=== PATIENT | male | born 1950 | race Caucasian/White ===

== ENCOUNTER 2020-01-01 10:21 | Emergency (ER) | payer OTHER ==
--- NOTE | 2020-01-01 11:09 | RAD REPORT ---
EXAM DESCRIPTION: RAD - Chest Single View - 01/01/2020 10:49 am CLINICAL HISTORY: COUGH Chest pain. COMPARISON: No comparisons FINDINGS: Portable technique limits examination quality. Calcified granuloma is present in the right lung. The lungs otherwise clear. The heart is normal in s ize. No displaced fractures. IMPRESSION: No acute intrathoracic process suspected.
[2020-01-01] MEDS ORDERED: ASPIRIN 81 MG CHEWABLE TABLET ONE (11:46)
[2020-01-01 12:00] LABS: Protime INR 0.97
[2020-01-01 12:01] LABS: Absolute Lymphocytes (CBC) 0.8 K/uL (0.7-4.9); Basophils % 0.1 % (0-1.3); Hematocrit 52.6 % (39.6-49.0); Lymphocytes % 7.4 % (15.3-44.8); MPV 8.3 fL (7.6-11.3); RBC Red Blood Cell Count 5.55 M/uL (4.33-5.43)
[2020-01-01 12:19] LABS: ALT/SGPT 22 U/L (12-78); AST/SGOT 16 U/L (15-37); Albumin 3.6 g/dL (3.4-5.0); Alkaline Phosphatase 85 U/L (45-117); BUN Blood Urea Nitrogen 19 mg/dL (7-18); Bicarbonate 24 mmol/L (21-32); Bilirubin Direct 0.2 mg/dL (0-0.2); Bilirubin Total 0.8 mg/dL (0.2-1.0); Glucose Level 84 mg/dL (74-106); Magnesium 2.3 mg/dL (1.8-2.4); NT PRO-BNP 13 pg/mL (<125); Potassium 4.1 mmol/L (3.5-5.1); Protein, Total 7.2 g/dL (6.4-8.2); Sodium Level 140 mmol/L (136-145); Troponin (Emerg Dept Use Only) < 0.02 ng/mL (0.0-0.045)
[2020-01-01 12:47] LABS: Blood Morphology Comment NOT SEEN (NOT SEEN); Platelet Estimate ADEQ; White Blood Cell Scan OK (OK)
--- NOTE | 2020-01-01 13:07 | EDPHYS ---
Physician Documentation [facility] Name: Suresh Coles Age: 69 yrs Sex: Male : 1950 Arrival Date: 01/01/2020 Time: 10:25 Bed 2 Private MD: ED Physician Roque Barnett HPI: 12/31 11:16 This 69 yrs old Male presents to ER via EMS with complaints of Near Syncope. amalia 11:16 The patient has experienced near-syncope, almost passed out. Onset: The amalia symptoms/episode began/occurred just prior to arrival. Duration: This was a single episode, that lasted 30 second(s). Context: the episode(s) was witnessed, having blood drawn at [facility], no pain. Associated injury: The patient did not suffer any apparent associated injury. Associated signs and symptoms: The patient has no apparent associated signs or symptoms. The patient has not experienced similar symptoms in the past. Historical: - Allergies: 10:25 No Known Allergies; aa5 - PMHx: 10:25 Hypertension; Hyperlipidemia; aa5 - Immunization history:: Adult Immunizations unknown. - Social history:: Smoking status: Patient denies any tobacco usage or history of. ROS: 11:21 Constitutional: Negative for fever, chills, and weight loss, Eyes: Negative for injury, amalia pain, redness, and discharge, ENT: Negative for injury, pain, and discharge, Neck: Negative for injury, pain, and swelling, Cardiovascular: Negative for chest pain, palpitations, and edema, Respiratory: Negative for shortness of breath, cough, wheezing, and pleuritic chest pain, Abdomen/GI: Negative for abdominal pain, nausea, vomiting, diarrhea, and constipation, Back: Negative for injury and pain, : Negative for injury, bleeding, discharge, and swelling, MS/Extremity: Negative for injury and deformity, Skin: Negative for injury, rash, and discoloration, Psych: Negative for depression, anxiety, suicide ideation, homicidal ideation, and hallucinations, Allergy/Immunology: Negative for hives, rash, and allergies, Endocrine: Negative for neck swelling, polydipsia, polyuria, polyphagia, and marked weight changes, Hematologic/Lymphatic: Negative for swollen nodes, abnormal bleeding, and unusual bruising. 11:21 Neuro: Positive for near syncope, weakness. Exam: 11:21 Constitutional: This is a well developed, well nourished patient who is awake, alert, amalia and in no acute distress. Head/Face: Normocephalic, atraumatic. Eyes: Pupils equal round and reactive to light, extra-ocular motions intact. Lids and lashes normal. Conjunctiva and sclera are non-icteric and not injected. Cornea within normal limits. Periorbital areas with no swelling, redness, or edema. ENT: Nares patent. No nasal discharge, no septal abnormalities noted. Tympanic membranes are normal and external auditory canals are clear. Oropharynx with no redness, swelling, or masses, exudates, or evidence of obstruction, uvula midline. Mucous membranes moist. Neck: Trachea midline, no thyromegaly or masses palpated, and no cervical lymphadenopathy. Supple, full range of motion without nuchal rigidity, or vertebral point tenderness. No Meningismus. Chest/axilla: Normal chest wall appearance and motion. Nontender with no deformity. No lesions are appreciated. Cardiovascular: Regular rate and rhythm with a normal S1 and S2. No gallops, murmurs, or rubs. Normal PMI, no JVD. No pulse deficits. Respiratory: Lungs have equal breath sounds bilaterally, clear to auscultation and percussion. No rales, rhonchi or wheezes noted. No increased work of breathing, no retractions or nasal flaring. Abdomen/GI: Soft, non-tender, with normal bowel sounds. No distension or tympany. No guarding or rebound. No evidence of tenderness throughout. Back: No spinal tenderness. No costovertebral tenderness. Full range of motion. Male : Normal genitalia with no discharge or lesions. Skin: Warm, dry with normal turgor. Normal color with no rashes, no lesions, and no evidence of cellulitis. MS/ Extremity: Pulses equal, no cyanosis. Neurovascular intact. Full, normal range of motion. Neuro: Awake and alert, GCS 15, oriented to person, place, time, and situation. Cranial nerves II-XII grossly intact. Motor strength 5/5 in all extremities. Sensory grossly intact. Cerebellar exam normal. Normal gait. Psych: Awake, alert, with orientation to person, place and time. Behavior, mood, and affect are within normal limits. 11:21 Musculoskeletal/extremity: DVT Exam: No signs of deep vein thrombosis. no pain, no swelling, no tenderness, negative Homans' sign noted on exam, no appreciated bluish discoloration, no erythema, no increased warmth. Vital Signs: 10:25 BP 125 / 51; Pulse 75; Resp 18 S; Temp 98.0(O); Pulse Ox 100% on R/A; Weight 80.74 kg aa5 (R); Height 5 ft. 5 in. (165.10 cm) (R); Pain 0/10; 11:35 BP 150 / 97; Pulse 80; Resp 18 S; Pulse Ox 100% on R/A; aa5 13:20 BP 141 / 96 Supine; Pulse 88; vg1 13:23 BP 160 / 99 Sitting; Pulse 87; vg1 13:26 BP 161 / 102 Standing; Pulse 83; vg1 10:25 Body Mass Index 29.62 (80.74 kg, 165.10 cm) aa5 MDM: 10:35 Patient medically screened. amalia 11:22 Differential Diagnosis: cardiac arrhythmia, GI bleed, idiopathic syncope, transient amalia ischemic attack, vasovagal episode. Data reviewed: vital signs, nurses notes, EMS record, lab test result(s), EKG, radiologic studies, plain films. Data interpreted: equipment services associate: rate is 75 beats/min, rhythm is regular, Pulse oximetry: on room air is 100 %. Test interpretation: by ED physician or midlevel provider: ECG, plain radiologic studies. Counseling: I had a detailed discussion with the patient and/or guardian regarding: the historical points, exam findings, and any diagnostic results supporting the discharge/admit diagnosis, lab results, radiology results, the need for outpatient follow up, for definitive care, a job coach/job developer. 11:33 Physician consultation: Wilfrido Rodriguez MD and will see patient in office, asa and follow amalia up. 12/31 10:37 Order name: Basic Metabolic Panel; Complete Time: 13: amalia 12/31 10:37 Order name: CBC with Diff; Complete Time: 13: amalia 12/31 10:37 Order name: LFT's; Complete Time: 13:12/31 10:37 Order name: Magnesium; Complete Time: 13:12/31 10:37 Order name: NT PRO-BNP; Complete Time: 13:12/31 10:37 Order name: PT-INR; Complete Time: 13: [facility] 12/31 10:37 Order name: Troponin (emerg Dept Use Only); Complete Time: 13:03 [facility] 12/31 10:37 Order name: XRAY Chest (1 view); Complete Time: 11:32 [facility] 12/31 10:37 Order name: EKG; Complete Time: 10:38 [facility] 12/31 10:37 Order name: Cardiac monitoring; Complete Time: 10:38 [facility] 12/31 11:48 Order name: Glucose, Ancillary Testing; Complete Time: 11:56 [facility] 12/31 12:06 Order name: CBC Smear Scan; Complete Time: 13:03 [facility] 12/31 10:37 Order name: EKG - Nurse/Tech; Complete Time: 10:39 [facility] 12/31 10:37 Order name: IV Saline Lock; Complete Time: 10:39 [facility] 12/31 10:37 Order name: Labs collected and sent; Complete Time: 11:20 [facility] 12/31 10:37 Order name: O2 Per Protocol; Complete Time: 10:39 [facility] 12/31 10:37 Order name: O2 Sat Monitoring; Complete Time: 10:39 [facility] 12/31 11:16 Order name: Labs collected and sent: recollect all labs; Complete Time: 11:47 12/31 13:05 Order name: Orthostatics; Complete Time: 13:32 [facility] Administered Medications: 10:55 Drug: NS 0.9% 500 ml Route: IV; Rate: bolus; Site: right wrist; aa5 11:40 Follow up: IV Status: Completed infusion; IV Intake: 500ml aa5 11:35 Drug: Aspirin 81 mg Route: PO; vg1 13:40 Follow up: Response: No adverse reaction aa5 Point of Care Testing: Blood Glucose: 10:29 Blood Glucose: 89 mg/dL; aa5 Ranges: Critical Glucose Levels:Adult <50 mg/dl or >400 mg/dl <40 mg/dl or >180 mg/dl Disposition: 01/01/20 13:06 Discharged to Home. Impression: Syncope and collapse - near/vasovagal. - Condition is Stable. - Discharge Instructions: Near-Syncope, Weakness, Near-Syncope, Zalm-od-Cnik, Weakness, Orti-av-Xhkk, Aspirin and Your Heart, Vasovagal Syncope, Adult. - Medication Reconciliation Form, Thank You Letter, Antibiotic Education, Prescription Opioid Use form. - Follow up: Private Physician; When: 2 - 3 days; Reason: Recheck today's complaints, Re-evaluation by your physician. Follow up: Wilfrido Rodriguez; When: 2 - 3 days; Reason: Recheck today's complaints, Continuance of care, Re-evaluation by your physician. - Problem is new. - Symptoms have improved. Signatures: Dispatcher [employer] EDMS Melodie Donato Corey, MD MD cha Williams, Irene, RN RN iw Yolanda Chun RN RN aa5 Kay Cramer, RN RN vg1 Corrections: (The following items were deleted from the chart) 13:49 13:06 01/01/2020 13:06 Discharged to Home. Impression: Syncope and collapse - iw near/vasovagal. Condition is Stable. Discharge Instructions: Near-Syncope, Weakness, Near-Syncope, Rdab-oy-Qayn, Weakness, Yrzh-kh-Wtlt, Aspirin and Your Heart, Vasovagal Syncope, Adult. Forms are Medication Reconciliation Form, Thank You Letter, Antibiotic Education, Prescription Opioid Use. Follow up: Private Physician; When: 2 - 3 days; Reason: Recheck today's complaints, Re-evaluation by your physician. Follow up: Wilfrido Rodriguez; When: 2 - 3 days; Reason: Recheck today's complaints, Continuance of care, Re-evaluation by your physician. Problem is new. Symptoms have improved. amalia
--- NOTE | 2020-01-01 13:07 | ER ---
Nurse's Notes [facility] Name: Suresh Coles Age: 69 yrs Sex: Male : 1950 Arrival Date: 01/01/2020 Time: 10:25 Bed 2 Private MD: Diagnosis: Syncope and collapse-near/vasovagal Presentation: 12/31 10:25 Chief complaint: EMS states: syncopal episode reported during blood draw at the [facility], witnessed by [facility] staff. EKG was then completed by [facility] staff and read as "acute STEMI". Pt states "I did not pass out, I just told her that I felt like I was going to pass out, but I remember everything". Pt states "my hemoglobin was high at 19 recently so the doctor wanted me to have more blood work today to check on it". Pt denies any complaints at this time. EMS reports systolic BP upon their arrival was 150 and pt was awake and alert. Pt has hx of syncope during blood draws. 10:25 Coronavirus screen: Client denies travel out of the [place] in the last 14 days. At this aa5 time, the client does not indicate any symptoms associated with coronavirus-19. Ebola Screen: Patient negative for fever greater than or equal to 101.5 degrees Fahrenheit, and additional compatible Ebola Virus Disease symptoms. Initial Sepsis Screen: Does the patient meet any 2 criteria? No. Patient's initial sepsis screen is negative. Does the patient have a suspected source of infection? No. Patient's initial sepsis screen is negative. Risk Assessment: Do you want to hurt yourself or someone else? Patient reports no desire to harm self or others. Onset of symptoms was January 01, 2020. 10:25 Acuity: PEPE 3 aa5 10:25 Method Of Arrival: EMS: [facility] aa5 10:25 Care prior to arrival: IV initiated. 20 GA, in the right hand. aa5 Historical: - Allergies: 10:25 No Known Allergies; aa5 - PMHx: 10:25 Hypertension; Hyperlipidemia; aa5 - Immunization history:: Adult Immunizations unknown. - Social history:: Smoking status: Patient denies any tobacco usage or history of. Screenin:30 Abuse screen: Denies threats or abuse. Nutritional screening: No deficits noted. aa5 Tuberculosis screening: No symptoms or risk factors identified. Fall Risk None identified. Assessment: 10:25 General: Appears comfortable, Behavior is calm, cooperative. Pain: Denies pain. Neuro: aa5 Level of Consciousness is awake, alert, obeys commands, Oriented to person, place, time, situation. Cardiovascular: Denies chest pain, Heart tones S1 S2 present Rhythm is regular. Respiratory: Airway is patent Respiratory effort is even, unlabored, Respiratory pattern is regular, symmetrical, Breath sounds are clear bilaterally. GI: Abdomen is round Patient currently denies nausea, vomiting. : No signs and/or symptoms were reported regarding the genitourinary system. EENT: No signs and/or symptoms were reported regarding the EENT system. Derm: Skin is pink, warm \\T\\ dry. Musculoskeletal: Range of motion: intact in all extremities. 11:42 Reassessment: Patient is alert, oriented x 3, equal unlabored respirations, skin aa5 warm/dry/pink. Pt denies any complaints. Pt notified of wait time for lab results. . 13:19 Reassessment: D/C pending due to new nursing orders. vg1 13:40 Reassessment: Patient is alert, oriented x 3, equal unlabored respirations, skin aa5 warm/dry/pink. Vital Signs: 10:25 BP 125 / 51; Pulse 75; Resp 18 S; Temp 98.0(O); Pulse Ox 100% on R/A; Weight 80.74 kg aa5 (R); Height 5 ft. 5 in. (165.10 cm) (R); Pain 0/10; 11:35 BP 150 / 97; Pulse 80; Resp 18 S; Pulse Ox 100% on R/A; aa5 13:20 BP 141 / 96 Supine; Pulse 88; vg1 13:23 BP 160 / 99 Sitting; Pulse 87; vg1 13:26 BP 161 / 102 Standing; Pulse 83; vg1 10:25 Body Mass Index 29.62 (80.74 kg, 165.10 cm) aa5 ED Course: 10:25 Patient arrived in ED. aa5 10:25 Arm band placed on Patient placed in an exam room, on a stretcher. aa5 10:25 Patient has correct armband on for positive identification. Bed in low position. Call aa5 light in reach. Side rails up X2. quality assurance monitor on. Pulse ox on. NIBP on. 10:33 EKG done, by ED staff, reviewed by Roque Barnett MD. nh 10:34 Triage completed. aa5 10:35 Roque Barnett MD is Attending Physician. the [facility] 10:35 Yolanda Chun, RN is Primary Nurse. aa5 10:47 XRAY Chest (1 view) In Process Unspecified. EDMS 10:55 Initial lab(s) drawn, by me, sent to lab. vg1 11:42 Lab(s) recollected, by me, sent to lab. aa5 13:06 Wilfrido Rodriguez MD is Referral Physician. [facility] 13:40 No provider procedures requiring assistance completed. IV discontinued, intact, aa5 bleeding controlled, No redness/swelling at site. Pressure dressing applied. Administered Medications: 10:55 Drug: NS 0.9% 500 ml Route: IV; Rate: bolus; Site: right wrist; aa5 11:40 Follow up: IV Status: Completed infusion; IV Intake: 500ml aa5 11:35 Drug: Aspirin 81 mg Route: PO; vg1 13:40 Follow up: Response: No adverse reaction aa5 Point of Care Testing: Blood Glucose: 10:29 Blood Glucose: 89 mg/dL; aa5 Ranges: Intake: 11:40 IV: 500ml; Total: 500ml. aa5 Outcome: 13:06 Discharge ordered by . [facility] 13:40 Discharged to home ambulatory. aa5 13:40 Condition: good 13:40 Discharge instructions given to patient, Instructed on discharge instructions, follow up and referral plans. Demonstrated understanding of instructions, follow-up care. 13:49 Patient left the ED. iw Signatures: Dispatcher [employer] EDNJ Roque Barnett MD MD cha Williams, Irene, RN RN Yolanda Chun, RN RN [facility] Natalee Carbajal mt, Victoria, RN RN vg1 Corrections: (The following items were deleted from the chart) 10:35 10:25 Chief complaint: EMS states: syncopal episode reported during blood draw at the [address], witnessed by [facility] staff. EKG was then completed by [facility] staff and read as "acute STEMI". Pt states "I did not pass out, I just told her that I felt like I was going to pass out, but I remember everything". Pt states "my hemoglobin was high at 19 recently so the doctor wanted me to have more blood work today to check on it". Pt denies any complaints at this time. EMS reports systolic BP upon their arrival was 150 and pt was awake and alert. aa5
[2020-01-01 16:19] VITALS: TEMP 98; O2SAT 100
[2020-01-01 16:25] VITALS: BP 161/102
--- NOTE | 2020-01-02 18:15 | EKG ---
Test Date: 2020-01-01 Test Time: 10:27:[address] Engineer: DIEGO MEASUREMENT RESULTS: Intervals: Rate: 72 UT: 168 QRSD: 120 QT: 410 QTc: 448 [place]: P: 61 UT: 168 QRS: 263 T: -20 INTERPRETIVE STATEMENTS: Normal sinus rhythm Right superior axis deviation Pulmonary disease pattern Nonspecific intraventricular conduction delay Abnormal QRS-T angle, consider primary T wave abnormality Abnormal ECG Compared to ECG 03/10/1995 20:57:00 Right superior axis now present Intraventricular conduction delay now present T-wave abnormality now present Left-axis deviation no longer present Electronically Signed On 01-02-20 18:11:42 ADVICE CLERK by Wilfrido Rodriguez
== END 2020-01-01 13:49 | disposition home or self-care (01) ==
LOC: ER 10:21
DX: R55 Syncope and collapse (principal); R53.1 Weakness; I10 Essential (primary) hypertension
CPT/HCPCS: 36415; 71045; 80048; 80076; 82947; 83735; 83880; 84484; 85025; 85610; 93005; 96360; 99285

== ENCOUNTER 2023-10-13 11:27 | Emergency (ER) | payer OTHER ==
--- NOTE | 2023-10-13 14:56 | EDPHYS ---
Physician Documentation [facility] Name: Suresh Coles Age: 73 yrs Sex: Male : 1950 Arrival Date: 10/13/2023 Time: 11:27 Bed 8 Private MD: ED Physician Christian Lebron HPI: 10/12 11:40 This 73 yrs old Male presents to ER via Wheelchair with complaints of Wasp Sting-4WKs, ms3 Arm Swelling. 11:40 73-year-old male with past medical history of hypertension and hyperlipidemia presents ms3 to the emergency department for right hand swelling that has been ongoing for 4 weeks. Patient states he was seen at the [facility] steroids, Valium, antihistamines without improvement of his symptoms. Patient denies pain. He denies any alleviating or inciting factors. Historical: - Allergies: 11:39 No Known Allergies; kc6 - Home Meds: 11:39 None [Active]; kc6 - PMHx: 11:39 Hyperlipidemia; Hypertension; kc6 - PSHx: 11:39 None; kc6 - Immunization history:: Adult Immunizations up to date. - Infectious Disease History:: Denies. - Social history:: Smoking status: Patient denies any tobacco usage or history of. ROS: 11:40 Constitutional: Negative for fever, and chills. Cardiovascular: Negative for chest ms3 pain, and palpitations. Respiratory: Negative for shortness of breath, cough, wheezing, and pleuritic chest pain, Abdomen/GI: Negative for abdominal pain, nausea, vomiting, diarrhea, and constipation, 11:40 MS/extremity: Positive for Right hand swelling, Exam: 11:40 Constitutional: This is a well developed, well nourished patient who is awake, alert, ms3 and in no acute distress. Head/Face: Normocephalic, atraumatic. Chest/axilla: Normal chest wall appearance and motion. Nontender with no deformity. Cardiovascular: Regular rate and rhythm with a normal S1 and S2. No gallops, murmurs, or rubs. Normal PMI, no JVD. No pulse deficits. Respiratory: Lungs have equal breath sounds bilaterally, clear to auscultation and percussion. No rales, rhonchi or wheezes noted. No increased work of breathing, no retractions or nasal flaring. Abdomen/GI: Soft, non-tender, with normal bowel sounds. No distension or tympany. No guarding or rebound. No evidence of tenderness throughout. Skin: Warm, dry with normal turgor. Normal color with no rashes, no lesions, and no evidence of cellulitis. 11:40 Musculoskeletal/extremity: Extremities: noted in the right hand: swelling, There is no evidence of pain, tenderness, Vital Signs: 11:35 BP 130 / 92; Pulse 89; Resp 17 S; Temp 97.8(O); Pulse Ox 99% on R/A; Weight 81.65 kg; kc6 Height 5 ft. 7 in. (R); 15:10 BP 124 / 87; Pulse 87; Resp 18; Temp 97.9; Pulse Ox 99% on R/A; ph 11:35 Body Mass Index 28.19 (81.65 kg, 170.18 cm) kc6 MDM: 11:39 Patient medically screened. ms3 11:40 Differential diagnosis: DVT vs Cellulitis vs Allergic rxn. ms3 19:06 Data reviewed: vital signs, nurses notes, radiologic studies, and as a result, I will ms3 discharge patient. I considered the following discharge prescriptions or medication management in the emergency department Medications were administered in the Emergency Department. See MAR. Counseling: I had a detailed discussion with the patient and/or guardian regarding the historical points, exam findings, and any diagnostic results supporting the discharge/admit diagnosis, radiology results, the need for outpatient follow up, to return to the emergency department if symptoms worsen or persist or if there are any questions or concerns that arise at home. Special discussion: I discussed with the patient/guardian in detail that at this point there is no indication for admission to the hospital. It is understood, however, that if the symptoms persist or worsen the patient needs to return immediately for re-evaluation. ED course: Discussed negative venous Doppler of right upper extremity with patient and his . [facility]. Patient given prescription for doxycycline 100 mg twice daily. All questions were answered. Return precautions discussed include worsening symptoms, or any other concerns. 10/12 11:47 Order name: UPPER EXTREMITY VENOUS UNILATE EDMS Administered Medications: 15:08 Drug: Dexamethasone IM 10 mg IM once Route: IM; Site: right gluteus; ph 15:10 Follow up: Response: No adverse reaction; Medication administered at discharge. ph Disposition Summary: 10/13/23 14:55 Discharge Ordered Notes: Location: Home ms3 Condition: Stable ms3 Diagnosis - Right hand swelling ms3 Followup: ms3 - With: Private Physician - When: 2 - 3 days - Reason: Recheck today's complaints Discharge Instructions: - Discharge Summary Sheet ms3 - Edema, [id number] ms3 Forms: - Medication Reconciliation Form ms3 - Antibiotic Education ms3 - Prescription Opioid Use ms3 - Patient Portal Instructions ms3 - Leadership Thank You Letter ms3 Prescriptions: - Doxycycline Hyclate 100 mg Oral Tablet - take 1 tablet ORAL route every 12 hours; 20 tablet; Refills: 0, Product ms3 Selection Permitted Signatures: Dispatcher [employer] EDChristiana Olvera, RN RN Christian Lebron DO DO ms3 Dariana Ryder RN RN kc6 Corrections: (The following items were deleted from the chart) 11:47 11:40 Extremity Venous [email or web address] ordered. EDMS EDMS
--- NOTE | 2023-10-13 14:56 | ER ---
Nurse's Notes [facility] Name: Suresh Coles Age: 73 yrs Sex: Male : 1950 Arrival Date: 10/13/2023 Time: 11:27 Bed 8 Private MD: Diagnosis: Right hand swelling Presentation: 10/12 11:35 Chief complaint: Patient states: he was stung by a wasp about 4 weeks ago and noticed kc6 swelling a couple days later. [facility] , antihistamines, and steroids. pt also reports difficult walking x 3 weeks. Coronavirus screen: At this time, the client does not indicate any symptoms associated with coronavirus-19. Ebola Screen: No symptoms or risks identified at this time. Initial Sepsis Screen: Does the patient meet any 2 criteria? No. Patient's initial sepsis screen is negative. Does the patient have a suspected source of infection? No. Patient's initial sepsis screen is negative. Risk Assessment: Do you want to hurt yourself or someone else? Patient reports no desire to harm self or others. Onset of symptoms was October 13, 2023. 11:35 Method Of Arrival: Wheelchair kc6 11:35 Acuity: PEPE 3 kc6 Historical: - Allergies: 11:39 No Known Allergies; kc6 - Home Meds: 11:39 None [Active]; kc6 - PMHx: 11:39 Hyperlipidemia; Hypertension; kc6 - PSHx: 11:39 None; kc6 - Immunization history:: Adult Immunizations up to date. - Infectious Disease History:: Denies. - Social history:: Smoking status: Patient denies any tobacco usage or history of. Screenin:22 [facility] ED Fall Risk Assessment (Adult) History of falling in the last 3 months, ph including since admission No falls in past 3 months (0 pts) Confusion or Disorientation No (0 pts) Intoxicated or Sedated No (0 pts) Impaired Gait No (0 pts) Mobility Assist Device Used Yes (1 pt) Altered Elimination No (0 pt) Score/Fall Risk Level 0 - 2 = Low Risk Oriented to surroundings, Maintained a safe environment, Hourly rounding (assess needs \\T\\ fall precautionary measures) done. Abuse screen: Denies threats or abuse. Denies injuries from another. Nutritional screening: No deficits noted. Tuberculosis screening: No symptoms or risk factors identified. Assessment: 12:23 General: Appears in no apparent distress. Behavior is calm, cooperative. Pain: ph Complains of pain in right hand. Neuro: Level of Consciousness is awake, alert, obeys commands, Oriented to person, place, time, situation. Cardiovascular: Capillary refill < 3 seconds in bilateral fingers Patient's skin is warm and dry. Derm: Skin is pink, warm \\T\\ dry. Musculoskeletal: Swelling present in right hand. 15:08 Reassessment: Patient appears in no apparent distress at this time. Patient and/or ph family updated on plan of care and expected duration. Pain level reassessed. Patient is alert, oriented x 3, equal unlabored respirations, skin warm/dry/pink. Pt requesting steroid shot to help w/ swelling, states, " [facility] Dr Lebron notified, verbal order received for 10 mg Decadron IM, see APR. Vital Signs: 11:35 BP 130 / 92; Pulse 89; Resp 17 S; Temp 97.8(O); Pulse Ox 99% on R/A; Weight 81.65 kg; kc6 Height 5 ft. 7 in. (R); 15:10 BP 124 / 87; Pulse 87; Resp 18; Temp 97.9; Pulse Ox 99% on R/A; ph 11:35 Body Mass Index 28.19 (81.65 kg, 170.18 cm) kc6 ED Course: 11:32 Patient arrived in ED. mg5 11:34 Christian Lebron DO is Attending Physician. ms3 11:39 Triage completed. kc6 11:39 Arm band placed on. kc6 11:41 Christiana Pope, RN is Primary Nurse. ph 12:23 Patient has correct armband on for positive identification. Bed in low position. Call ph light in reach. Side rails up X 1. 12:40 UPPER EXTREMITY VENOUS UNILATE In Process Unspecified. EDMS 15:10 No provider procedures requiring assistance completed. Patient did not have IV access ph during this emergency room visit. Administered Medications: 15:08 Drug: Dexamethasone IM 10 mg IM once Route: IM; Site: right gluteus; ph 15:10 Follow up: Response: No adverse reaction; Medication administered at discharge. ph Medication: 12:22 VIS not applicable for this client. ph Outcome: 14:55 Discharge ordered by . ms3 15:10 Discharged to home ambulatory, with significant other, ph 15:10 Condition: good 15:10 Discharge instructions given to patient, Instructed on discharge instructions, follow up and referral plans. medication usage, Demonstrated understanding of instructions, follow-up care, medications, Prescriptions given X 1, 15:11 Patient left the ED. ph Signatures: Dispatcher [employer] EDMS Christiana Pope, RN RN Christian Lebron DO DO ms3 Dariana Ryder, RN RN kc6 Sara Reich 5
[2023-10-13] MEDS ORDERED: dexAMETHasone 10 MG/ML VIAL ONE (15:02)
[2023-10-13 15:22] VITALS: O2SAT 99
[2023-10-13 15:24] VITALS: BP 124/87; TEMP 97.9
--- NOTE | 2023-10-13 16:32 | RAD REPORT ---
EXAM DESCRIPTION: US - UPPER EXTREMITY VENOUS UNILATE - 10/13/2023 12:38 pm CLINICAL HISTORY: SWELLING Arm swelling and edema. COMPARISON: No comparisons FINDINGS: Right upper extremity venous system was interrogated with Doppler technique. Normal flow, compressibility and augmentation was noted. There is no DVT present. IMPRESSION: No evidence of right upper extremity deep venous thrombosis.
== END 2023-10-13 15:11 | disposition home or self-care (01) ==
LOC: ER 11:27
DX: R22.31 Localized swelling, mass and lump, right upper limb (principal)
CPT/HCPCS: 93971; 96372; 99284; J1100

== ENCOUNTER 2023-10-18 10:59 | Emergency (ER) | payer OTHER ==
[2023-10-18 12:35] LABS: Absolute Eosinophils 0.1 K/uL (0-0.5); Absolute Lymphocytes (CBC) 1.4 K/uL (0.7-4.9); Absolute Neutrophil 7.2 K/uL (1.8-8.0); Basophils % 0.3 % (0-1.3); Hematocrit 44.3 % (39.6-49.0); Hemoglobin 14.8 g/dL (13.6-17.9); Lymphocytes % 14.2 % (15.3-44.8); MCH 31.2 pg (27.0-35.0); MCHC 33.5 g/dL (32.0-36.0); MCV 93.1 fL (80-100); MPV 7.5 fL (7.6-11.3); Monocytes % 9.9 % (3.3-12.3); Neutrophils % 74.6 % (41.7-73.7); Platelets 214 thou/uL (152-406); RBC Red Blood Cell Count 4.75 M/uL (4.33-5.43); Red Cell Distribution Width 13.3 % (12.1-15.2)
[2023-10-18 12:57] LABS: Albumin 2.9 g/dL (3.4-5.0); Albumin/Globulin Ratio 0.7 (1.1-1.8); Anion Gap 11.3 mEq/L (5.0-15.0); Bilirubin Total 0.7 mg/dL (0.2-1.0); Globulin 3.9 g/dL (2.3-3.5); Protein, Total 6.8 g/dL (6.4-8.2)
[2023-10-18 13:06] LABS: Potassium 4.3 mEq/L (3.5-5.1)
--- NOTE | 2023-10-18 13:15 | ER ---
Nurse's Notes [facility] Name: Suresh Coles Age: 73 yrs Sex: Male : 1950 Arrival Date: 10/18/2023 Time: 10:59 Bed 16 Private MD: Diagnosis: Right hand swelling status post insect bite Presentation: 10/17 11:15 Chief complaint: Patient states: Stung by wasp on middle finger of right hand 1 month cm10 ago. pt reports that the swelling and pain have not improved. Pt noted to have swelling to right arm. Pt reports being seen here last week for same issue. Coronavirus screen: Client denies travel out of the [place] in the last 14 days. At this time, the client does not indicate any symptoms associated with coronavirus-19. Ebola Screen: Patient denies travel to an Ebola-affected area in the 21 days before illness onset. No symptoms or risks identified at this time. Initial Sepsis Screen: Does the patient meet any 2 criteria? HR > 90 bpm. Does the patient have a suspected source of infection? No. Patient's initial sepsis screen is negative. Risk Assessment: Do you want to hurt yourself or someone else? Patient reports no desire to harm self or others. Onset of symptoms was October 18, 2023. 11:15 Method Of Arrival: Wheelchair cm10 11:15 Acuity: PEPE 4 cm10 Triage Assessment: 11:16 General: Appears in no apparent distress. comfortable, Behavior is calm, cooperative. cm10 Neuro: No deficits noted. Level of Consciousness is awake, alert, obeys commands, Oriented to person, place, time, situation, Appropriate for age. Respiratory: No deficits noted. Airway is patent Respiratory effort is even, unlabored, Respiratory pattern is regular, symmetrical. Historical: - Allergies: 11:16 No Known Allergies; cm10 - PMHx: 11:16 Hyperlipidemia; Hypertension; cm10 - Immunization history:: Adult Immunizations up to date. - Infectious Disease History:: Denies. - Social history:: Smoking status: Patient denies any tobacco usage or history of. Screenin:15 [facility] ED Fall Risk Assessment (Adult) History of falling in the last 3 months, ar6 including since admission No falls in past 3 months (0 pts) Confusion or Disorientation No (0 pts) Intoxicated or Sedated No (0 pts) Impaired Gait No (0 pts) Mobility Assist Device Used No (0 pt) Altered Elimination No (0 pt) Score/Fall Risk Level 0 - 2 = Low Risk Oriented to surroundings, Maintained a safe environment, Educated pt \T\ family on fall prevention, incl call for assistance when getting out of bed, Hourly rounding (assess needs \T\ fall precautionary measures) done. Abuse screen: Denies threats or abuse. Denies injuries from another. Nutritional screening: No deficits noted. Tuberculosis screening: No symptoms or risk factors identified. Assessment: 12:15 General: Appears in no apparent distress. comfortable, Behavior is calm, cooperative, ar6 appropriate for age. Pain: Complains of pain in right hand Pain currently is 7 out of 10 on a pain scale. Pain began x1 month ago; pt. reports being stung by a wasp. Neuro: Level of Consciousness is awake, alert, obeys commands, Oriented to person, place, time, situation. Cardiovascular: Capillary refill < 3 seconds. Respiratory: Airway is patent. GI: Abdomen is round non-distended. : No signs and/or symptoms were reported regarding the genitourinary system. EENT: Oral mucosa is moist. Derm: Skin is intact, abrasion to right middle finger Skin is dry, Skin is pink, warm \T\ dry. Musculoskeletal: No signs and/or symptoms reported regarding the musculoskeletal system. Vital Signs: 11:15 BP 134 / 98; Pulse 94; Resp 16; Temp 97.3; Pulse Ox 96% ; Weight 81.65 kg; Height 5 ft. cm10 8 in. ; Pain 10/10; 12:15 BP 134 / 89; Pulse 88; Resp 20; Temp 98.1; Pulse Ox 99% on R/A; ar6 12:48 BP 138 / 89; Pulse 91; Resp 20; Pulse Ox 99% ; ar6 13:23 BP 136 / 84; Pulse 88; Resp 20; Pulse Ox 100% on R/A; ar6 11:15 Body Mass Index 27.37 (81.65 kg, 172.72 cm) cm10 11:15 Pain Scale: Adult cm10 ED Course: 11:01 Patient arrived in ED. jj6 11:05 Juana Child MD is Attending Physician. sp3 11:16 Triage completed. cm10 11:17 Arm band placed on Patient placed in waiting room. cm10 12:10 Angelic Ball, RN is Primary Nurse. ar6 12:15 No apparent distress. ar6 12:15 Patient has correct armband on for positive identification. Bed in low position. Call ar6 light in reach. Side rails up X 1. Provided Education on: plan of care. Pulse ox on. NIBP on. Door closed. Noise minimized. Lights dimmed. Warm blanket given. Head of bed lowered. 12:15 No provider procedures requiring assistance completed. Inserted saline lock: 22 gauge ar6 in right wrist, using aseptic technique. Blood collected. Flushed with 10 mL NS. 12:26 CBC with Diff Sent. ar6 12:26 CMP Sent. ar6 13:43 IV discontinued, intact, bleeding controlled, No redness/swelling at site. Pressure ar6 dressing applied. Administered Medications: 13:31 Drug: Dexamethasone IM 10 mg IM once Route: IM; Site: left deltoid; ar6 13:43 Follow up: Response: No adverse reaction ar6 Medication: 12:15 VIS not applicable for this client. ar6 Outcome: 13:14 Discharge ordered by . sp3 13:24 Discharged to home ambulatory, with family, ar6 13:24 Condition: good 13:24 Discharge instructions given to patient, family, Instructed on discharge instructions, follow up and referral plans. Demonstrated understanding of instructions, follow-up care, 13:43 Patient left the ED. ar6 Signatures: Juana Child MD MD sp3 Nicole Garduno jj6 Sherrie Mckeon RN RN cm10 Angelic Ball, RN RN ar6 Corrections: (The following items were deleted from the chart) 11:17 11:15 Chief complaint: Patient states: Stung by wasp on middle finger of right hand 1 cm10 month ago. pt reports that the swelling and pain have not improved. cm10
--- NOTE | 2023-10-18 13:15 | EDPHYS ---
Physician Documentation [facility] Name: Suresh Coles Age: 73 yrs Sex: Male : 1950 Arrival Date: 10/18/2023 Time: 10:59 Bed 16 Private MD: ED Physician Juana Child HPI: 10/17 13:02 This 73 yrs old Male presents to ER via Wheelchair with complaints of Wasp sp3 Sting-swelling. 13:02 73-year-old male with history of hyperlipidemia, hypertension who is a patient at the [facility] presents for recurrent symptoms of right hand swelling after wasp sting over 6 weeks ago. Patient was seen [address] Lebron who ordered an ultrasound demonstrating no DVT or other abnormality, and also received antibiotics and steroid injection for Decadron. Patient was supposed follow-up with the [facility]. Symptoms have improved but swelling is still present. He denies any other symptoms including headache, fever, shortness of breath, chest pain, back pain, other rash, other bites, or any other signs or symptoms on ROS at this time.. Historical: - Allergies: 11:16 No Known Allergies; cm10 - PMHx: 11:16 Hyperlipidemia; Hypertension; cm10 - Immunization history:: Adult Immunizations up to date. - Infectious Disease History:: Denies. - Social history:: Smoking status: Patient denies any tobacco usage or history of. ROS: 13:06 Constitutional: Negative for fever, chills, and weight loss, Eyes: Negative for injury, sp3 pain, redness, and discharge, ENT: Negative for injury, pain, and discharge, Neck: Negative for injury, pain, and swelling, Cardiovascular: Negative for chest pain, palpitations, and edema, Respiratory: Negative for shortness of breath, cough, wheezing, and pleuritic chest pain, Abdomen/GI: Negative for abdominal pain, nausea, vomiting, diarrhea, and constipation, Back: Negative for injury and pain, Neuro: Negative for headache, weakness, numbness, tingling, and seizure, Psych: Negative for depression, anxiety, suicide ideation, homicidal ideation, and hallucinations, Allergy/Immunology: Negative for hives, rash, and allergies, Endocrine: Negative for neck swelling, polydipsia, polyuria, polyphagia, and marked weight changes, Hematologic/Lymphatic: Negative for swollen nodes, abnormal bleeding, and unusual bruising, 13:06 All other systems are negative, Exam: 13:07 Constitutional: This is a well developed, well nourished patient who is awake, alert, sp3 and in no acute distress. Head/Face: Normocephalic, atraumatic. Eyes: Pupils equal round and reactive to light, extra-ocular motions intact. Lids and lashes normal. Conjunctiva and sclera are non-icteric and not injected. Cornea within normal limits. Periorbital areas with no swelling, redness, or edema. Neck: Trachea midline, no thyromegaly or masses palpated, and no cervical lymphadenopathy. Supple, full range of motion without nuchal rigidity, or vertebral point tenderness. No Meningismus. Chest/axilla: Normal chest wall appearance and motion. Nontender with no deformity. No lesions are appreciated. Cardiovascular: Regular rate and rhythm with a normal S1 and S2. No gallops, murmurs, or rubs. Normal PMI, no JVD. No pulse deficits. Respiratory: Lungs have equal breath sounds bilaterally, clear to auscultation and percussion. No rales, rhonchi or wheezes noted. No increased work of breathing, no retractions or nasal flaring. Abdomen/GI: Soft, non-tender, with normal bowel sounds. No distension or tympany. No guarding or rebound. No evidence of tenderness throughout. Back: No spinal tenderness. No costovertebral tenderness. Full range of motion. Skin: Warm, dry with normal turgor. Normal color with no rashes, no lesions, and no evidence of cellulitis. Neuro: Awake and alert, GCS 15, oriented to person, place, time, and situation. Cranial nerves II-XII grossly intact. Motor strength 5/5 in all extremities. Sensory grossly intact. Cerebellar exam normal. Normal gait. Psych: Awake, alert, with orientation to person, place and time. Behavior, mood, and affect are within normal limits. 13:07 Musculoskeletal/extremity: Mild swelling of the dorsal hand noted. Sting site with scab and no signs of erythema or infection. Swelling does not extend past mid hand on the dorsal side. Neurovascularly intact.. Vital Signs: 11:15 BP 134 / 98; Pulse 94; Resp 16; Temp 97.3; Pulse Ox 96% ; Weight 81.65 kg; Height 5 ft. cm10 8 in. ; Pain 10/10; 12:15 BP 134 / 89; Pulse 88; Resp 20; Temp 98.1; Pulse Ox 99% on R/A; ar6 12:48 BP 138 / 89; Pulse 91; Resp 20; Pulse Ox 99% ; ar6 13:23 BP 136 / 84; Pulse 88; Resp 20; Pulse Ox 100% on R/A; ar6 11:15 Body Mass Index 27.37 (81.65 kg, 172.72 cm) cm10 11:15 Pain Scale: Adult cm10 MDM: 11:29 Patient medically screened. sp3 13:08 Data reviewed: vital signs, nurses notes, lab test result(s). ED course: 73-year-old sp3 male with continued swelling of the right hand after wasp bite over 6 weeks ago. Clinically patient is not have a DVT, local infection, PE, cellulitis or other deep tissue infection. WBC count is normal. Chemistries are pending. Patient is already been on several rounds of antibiotics. I have advised him to wear compression dressing, get lymphatic massage and follow-up with allergy and immunology at the [facility]. If chemistries are negative we will safely discharge him home.. 13:13 ED course: CRP elevated with probable inflammatory process. I do not believe this is sp3 infection as there is no erythema, no pain to palpation, normal CBC, and patient has been on multiple rounds of antibiotics. We will discharge to allergy follow-up at this time.. 10/17 11:56 Order name: CBC with Diff; Complete Time: 12:58 sp3 10/17 11:56 Order name: CMP; Complete Time: 13:13 sp3 10/17 11:56 Order name: CRP; Complete Time: 13:13 sp3 10/17 11:56 Order name: Lactate w/ 2H reflex if indic.; Complete Time: 13:13 sp3 10/17 11:56 Order name: IV Saline Lock; Complete Time: 12:21 sp3 10/17 11:56 Order name: Labs collected and sent; Complete Time: 12:21 sp3 Administered Medications: 13:31 Drug: Dexamethasone IM 10 mg IM once Route: IM; Site: left deltoid; ar6 13:43 Follow up: Response: No adverse reaction ar6 Disposition Summary: 09/09/24 13:14 Discharge Ordered Notes: Location: Home sp3 Condition: Stable sp3 Diagnosis - Right hand swelling status post insect bite sp3 Followup: sp3 - With: Private Physician - When: Upon discharge from the Emergency Department - Reason: Continuance of care Discharge Instructions: - Discharge Summary Sheet sp3 - Insect Bite, Adult sp3 Forms: - Medication Reconciliation Form sp3 - Antibiotic Education sp3 - Prescription Opioid Use sp3 - Patient Portal Instructions sp3 - Leadership Thank You Letter sp3 Signatures: Dispatcher [employer] Juana Sullivan MD MD sp3 Sherrie Mckeon RN RN cm10 Angelic Ball RN RN ar6
[2023-10-18] MEDS ORDERED: dexAMETHasone 10 MG/ML VIAL ONE (13:29)
[2023-10-18 23:06] VITALS: BP 136/84; TEMP 98.1; O2SAT 100
== END 2023-10-18 13:43 | disposition home or self-care (01) ==
LOC: ER 10:59
DX: R22.31 Localized swelling, mass and lump, right upper limb (principal); T63.461A Toxic effect of venom of wasps, accidental (unintentional), initial encounter
CPT/HCPCS: 85025; 36415; 83605; 80053; 86140; 96372; 99284; J1100